=== PATIENT | female | born 1935 | race Caucasian/White ===

== ENCOUNTER 2017-12-19 17:10 | Inpatient (IN) | payer MEDICARE ==
[2017-12-19] MEDS ORDERED: LORazepam TAB(*) 1 MG PO ONE (19:41)
[2017-12-19] MEDS ORDERED: LORazepam INJ* 2 MG/ML 1 ML VIAL IM ONE (19:59)
--- NOTE | 2017-12-19 19:59 | ED ---
Abdominal Pain/Female - HPI Summary HPI Summary: Patient with history of dementia noncooperative with physical exam and history of present illness. Per family patient complains of dementia, bilateral foot pain, abdominal pain, left upper extremity pain. Family also states increase in Baseline hallucinations over the past 24 hours. Pt's regular caregiver is her who is currently admitted to [facility], and for mpast 24 hrs patient is now with son and [id number] who states they are unable to care for her. Medical conditions unknown, as patient has not been to PCP in 16 years. Family denies fever, cough, SOB, V, change in urine, change in BM. - History of Current Complaint Chief Complaint: EDGeneral Stated Complaint: NO BOWEL MOVEMENT(24 HRS)/CONFUSION Time Seen by Provider: 12/19/17 18:05 Hx Obtained From: Family/Pastry Wrapper Hx From Patient Unobtainable Due To: Dementia Onset/Duration: Lasting Hours Pain Intensity: 0 Pain Scale Used: 0-10 Numeric Associated Signs and Symptoms: Positive: Negative Allergies/Adverse Reactions: Allergies Allergy/AdvReac Type Severity Reaction Status Date / Time No Known Allergies Allergy Verified 12/19/17 21:32 PMH/Surg Hx/FS Hx/Imm Hx Endocrine/Hematology History: Denies: Hx Diabetes, Hx Thyroid Disease Cardiovascular History: Denies: Hx Hypertension Respiratory History: Denies: Hx Asthma, Hx Chronic Obstructive Pulmonary Disease (COPD) GI History: Denies: Hx Ulcer History: Denies: Hx Dialysis Musculoskeletal History: Denies: Hx Rheumatoid Arthritis, Hx Osteoporosis - Surgical History Surgery Procedure, Year, and Place: HYSTERECTOMY Infectious Disease History: No Infectious Disease History: Denies: Hx Clostridium Difficile, Hx Hepatitis, Hx Human Immunodeficiency Virus (HIV), Hx of Known/Suspected MRSA, Hx Shingles, Hx Tuberculosis, Traveled Outside the [place] in Last 30 Days - Social History Alcohol Use: None Substance Use Type: Reports: None Smoking Status (MU): Never Smoked Tobacco Review of Systems Constitutional: Negative ENT: Negative Cardiovascular: Negative Respiratory: Negative Positive: Abdominal Pain Genitourinary: Negative Musculoskeletal: Other Skin: Negative Neurological: Negative Psychological: Normal All Other Systems Reviewed And Are Negative: Yes Physical Exam - Summary Physical Exam Summary: Patient reacts to palpation of abdomen diffusely, worse in right lower quadrant. Patient moves bilateral lower extremities mild upper extremities freely. No evidence of trauma. Lung sounds clear to auscultation bilaterally. Triage Information Reviewed: Yes Vital Signs On Initial Exam: Initial Vitals Temp Pulse Resp BP Pulse Ox 98.9 F 80 16 167/96 96 12/19/17 17:22 12/19/17 17:22 12/19/17 17:22 12/19/17 17:22 12/19/17 17:22 Vital Signs Reviewed: Yes Appearance: Positive: Well-Appearing Skin: Positive: Warm Head/Face: Positive: Normal Head/Face Inspection Eyes: Positive: Normal ENT: Positive: Normal ENT inspection Neck: Positive: Supple Respiratory/Lung Sounds: Positive: Clear to Auscultation Cardiovascular: Positive: Normal Abdomen Description: Positive: Other: Musculoskeletal: Positive: Normal Neurological: Positive: Normal Psychiatric: Positive: Normal AVPU Assessment: Alert - Adrien Coma Scale Best Eye Response: 4 - Spontaneous Best Motor Response: 6 - Obeys Commands Best Verbal Response: 5 - Oriented Coma Scale Total: 15 Diagnostics - Vital Signs Vital Signs Temp Pulse Resp BP Pulse Ox 12/19/17 17:22 98.9 F 80 16 167/96 96 - Laboratory Result Diagrams: 12/20/17 05:43 12/20/17 05:44 Lab Statement: Any lab studies that have been ordered have been reviewed, and results considered in the medical decision making process. Abdominal Pain Fem Course/Dx - Course Course Of Treatment: Patient with history of dementia noncooperative with physical exam and history of present illness. Per family patient complains of dementia, bilateral foot pain, abdominal pain, left upper extremity pain. Family also states increase in Baseline hallucinations over the past 24 hours. Regular caregiver's who has been admitted to the hospital, and patient is now with son and [id number] who states they are unable to care for her. Medical conditions unknown, as patient has not been to PCP in 16 years. Family denies fever, cough, SOB, V, change in urine, change in BM. Physical exam:Patient reacts to palpation of abdomen diffusely, worse in right lower quadrant. Patient moves bilateral lower extremities mild upper extremities freely. No evidence of trauma. Lung sounds clear to auscultation bilaterally. Vital signs within normal limits. Patient was highly resistant to blood work being drawn and to all imaging. After Ativan 0.5 mg IV, Geodon 10 mg IV, Haldol 5 mg IV 2 patient remained resistant. Patient was ultimately placed on Precedex drip and imaging was performed during sedation. Labs are unremarkable. Patient is tachycardic, vital signs otherwise within normal limits. Chest x-ray suspicious for left lobe pneumonia. CT chest abdomen pelvis and brain pending. Admitted to hospitalist. - Diagnoses Provider Diagnoses: Altered mental status, Dementia, Abdominal pain, Left upper limb pain Discharge - Sign-Out/Discharge Documenting (check all that apply): Patient Departure - Discharge Plan Condition: Stable Disposition: ADMITTED TO [facility] - Billing Disposition and Condition Condition: STABLE Disposition: Admitted to [facility]
[2017-12-19] MEDS ORDERED: Ziprasidone IM INJ* 20 MG/ML VIAL IM ONE (22:20)
[2017-12-19] MEDS ORDERED: Sterile Water for Inj* 10 ML ONE (22:39)
[2017-12-20] MEDS ORDERED: Haloperidol INJ IV/IM* 5 MG/ML AMP IV SLOW PU ONE ×3 (01:01→15:10)
[2017-12-20 01:06] LABS: ABS Basophils 0 10^3/ul (0-0.2); ABS Eosinophils 0.1 10^3/ul (0-0.6); ABS Lymphocytes 1.1 10^3/ul (1.0-4.8); ABS Monocytes 0.3 10^3/ul (0-0.8); ABS Neutrophils 1.9 10^3/ul (1.5-7.7); ABS Nucleated RBC 0 10^3/ul; Eosinophil % 1.7 % (0-6); Hematocrit 39 % (35-47); Hemoglobin 12.8 g/dl (12.0-16.0); Mean Corpuscular HGB Conc 33 g/dl (31-36); Mean Corpuscular Hemoglobin 30 pg (27-31); Mean Corpuscular Volume 91 fL (80-97); Mean Platelet Volume 9.4 um3 (7.4-10.4); Nucleated Red Blood Cells % 0; Platelet Count 157 10^3/ul (150-450); Red Blood Count 4.22 10^6/ul (4.00-5.40); Red Cell Distribution Width 13 % (10.5-15); White Blood Count 3.4 10^3/ul (3.5-10.8)
[2017-12-20 01:16] LABS: EGFR Non-African American 66.7 (>60)
[2017-12-20] MEDS ORDERED: diPHENhydraMINE IV* 50 MG/ML 1 ml VIAL (BENADRYL) IV ONE (01:41)
[2017-12-20] MEDS ORDERED: Dexmedetomidine* 400 MCG in NS 0.9% 100 ML* 96 ML IVPB SCH (03:00)
[2017-12-20] MEDS ORDERED: NS 0.9% 500 ML* 500 ML IV ONE (03:14)
[2017-12-20] MEDS ORDERED: NS 0.9% 1000 ML* 1,000 ML IV SCH (03:30)
[2017-12-20] MEDS ORDERED: LORazepam INJ* 2 MG/ML 1 ML VIAL IV PUSH PRN (03:50)
[2017-12-20] MEDS ORDERED: hydrALAZINE IV* 20 MG/ML VIAL IV SLOW PU PRN (03:51)
[2017-12-20] MEDS ORDERED: LORazepam INJ* 2 MG/ML 1 ML VIAL IV PUSH STA (04:05)
--- NOTE | 2017-12-20 04:11 | ADMNOTE ---
Subjective Date of Service: 12/20/17 Interval History: code status full this is an admisison h/p pt is eval for 70 min hpi 82 yr old wf with hx of dementia was brought in by family who has been taking care of her after her was in this hospital---> unable to take care of her anymore. pt was found very agitated despite of multiple meds given from er: haldol iv 5 mg twice+ geodan 10 mg im + ativan 0.5 mg twice. er was unable to do any imaging and labs due to her agitation. pt was started with presadex drip for agitation. initial chest x ray showed left pleural effusion. pt c/o pain to er when first showed up but this creative services writer was unable to further eval due to her concurrent mental status. stat head ct was neg of acute cva but ct of chest and abd : large hiatal hernia containing the stomach, duodenal bulb and distal half transverse colon and prox descending colon cardiomegaly spoke with icu dr will call stat surgery. pt was cultured and started with zosyn and vanco when seen by this creative services writer phx dementia pshx n/a with abd scars seen when james was placed social hx unable comes from home lives with son after was admitted in hospital fhx n/a Family History: Findings - unable Social History: Findings - comes from home lives with who is in hospital Past Medical History: Findings - dementia otherwise unable Review of Systems - Measurements Intake and Output: Intake and Output Last 24 Hours 12/17/17 12/18/17 12/19/17 12/20/17 06:59 06:59 06:59 06:59 Weight 90 lb - Review of Systems General Comments: agitation otherwise unable due to dementia hx Objective Active Medications: Hydralazine HCl (Apresoline Iv*) 5 mg IV SLOW PU Q6H PRN PRN Reason: BLOOD PRESSURE Dexmedetomidine HCl 400 mcg/ (Sodium Chloride) 100 mls @ 6.12 mls/hr IVPB .( Initial Rate) MARTHA; Protocol Last Admin: 12/20/17 03:28 Dose: 6.12 mls/hr Sodium Chloride (Ns 0.9% 500 Ml*) 500 mls @ 70 mls/hr IV ONCE ONE Stop: 12/20/17 10:22 Last Admin: 12/20/17 03:29 Dose: 70 mls/hr Sodium Chloride (Ns 0.9% 1000 Ml*) 1,000 mls @ 100 mls/hr IV PER RATE MARTHA Stop: 12/20/17 13:29 Vital Signs - 8 hr 12/19/17 12/19/17 12/20/17 20:57 21:37 01:00 Temperature Pulse Rate 98 100 Respiratory 24 22 Rate Blood Pressure 201/113 (mmHg) O2 Sat by Pulse 96 94 Oximetry 12/20/17 12/20/17 12/20/17 01:29 02:00 03:00 Temperature 97.8 F Pulse Rate 97 116 128 Respiratory 20 27 Rate Blood Pressure (mmHg) O2 Sat by Pulse 98 97 97 Oximetry 12/20/17 03:42 Temperature Pulse Rate 111 Respiratory 21 Rate Blood Pressure 189/114 (mmHg) O2 Sat by Pulse 97 Oximetry Appearance: very agitated initially but finally settled with presadex drip Eyes: - - pt closes her eyelids tightly initially for exam Ears/Nose/Mouth/Throat: - - oral mucosa dry unable to eval due to her ms Neck: NL Appearance and Movements; NL JVP, Trachea Midline, No Thyroid Enlargement, Masses Respiratory: Symmetrical Chest Expansion and Respiratory Effort, Clear to Auscultation Cardiovascular: NL Sounds; No Murmurs; No JVD, RRR, No Edema Abdominal: - - + bs but + distended unable to pinpoint any focal tender point due to her ms Extremities: No Edema, - - unable to test further Skin: No Rash or Ulcers Neurological: - - very agitated does not follow commands able to move her exts against gravity plantar reflex downwards unable to further test due to her baseline dementia Result Diagrams: 12/20/17 05:43 12/20/17 05:44 EKG Data: ekg sinus tach no acute st t changes seen Assess/Plan/Problems-Billing Assessment: this is a 82 yr old wf with dementia was dropped by her family because they could not take care of her ---> was admitted in the hospital and she went to live with her son---> pt was given multiple antipsy meds from er with no relief finally settled down on presadex drip. no labs or imaging tests were able to be done until she got sedated. intial head ct is neg but ct chest showed large hiatal hernia containing stomach/duodenal bulb distal half of transverse colon and prox descending colon ---> spoke with surgery data processing consultant who will see pt in am - Patient Problems (1) Altered mental status Current Visit: Yes Status: Acute Code(s): R41.82 - ALTERED MENTAL STATUS, UNSPECIFIED SNOMED Code(s): 234954338 Comment: not sure of her baseline mental status she is on presadex drip due to her severe agitation will continue abx for now spoke with icu dr ---> surgery called due to abnormal ct of chest/abd (2) Abdominal pain Current Visit: Yes Status: Acute Code(s): R10.9 - UNSPECIFIED ABDOMINAL PAIN SNOMED Code(s): 60933764 Comment: large hiatal hernia npo for now surgery consult called in - cover with elisha (3) Electrolyte abnormality Current Visit: Yes Status: Acute Code(s): E87.8 - OTH DISORDERS OF ELECTROLYTE AND FLUID BALANCE, NEC SNOMED Code(s): 269190292 Comment: on ivf continue current mgt (4) Mild dehydration Current Visit: Yes Status: Acute Code(s): E86.0 - DEHYDRATION SNOMED Code( s): 4835516433682 Comment: ivf moniter daily lytes and input and output james in place (5) Full code status Current Visit: Yes Status: Acute Code(s): Z78.9 - OTHER SPECIFIED HEALTH STATUS SNOMED Code(s): 804250553 Comment: pt has very guarded prognosis will need to d/w family reg her code status is sick and admitted in the hospital otherwise son/daughter in law are unable to take care of her (6) DVT prophylaxis Current Visit: Yes Status: Acute Code(s): IRO1065 - SNOMED Code(s): 295028692 Comment: scd
[2017-12-20] MEDS ORDERED: ZOSYN 3.375 GM x ONE DOSE over 30 miuntes IVPB ×2 (05:00)
[2017-12-20 05:04] LABS: Urine Appearance Clear; Urine Blood 1+ (Negative); Urine Color Yellow; Urine Ketones Trace (Negative); Urine Protein Negative (Negative); Urine Red Blood Cell 2+(6-10/hpf) (Absent); Urine Specific Gravity 1.009 (1.010-1.030); Urine Urobilinogen Negative (Negative); Urine White Blood Cell Trace(0-5/hpf) (Absent)
[2017-12-20] MEDS ORDERED: Vancomycin(*) 750 MG in NS 0.9% 250 ML* 250 ML IVPB ONE (06:00)
[2017-12-20 06:03] LABS: ABS Basophils 0 10^3/ul (0-0.2); ABS Eosinophils 0 10^3/ul (0-0.6); ABS Lymphocytes 0.9 10^3/ul (1.0-4.8); ABS Monocytes 0.4 10^3/ul (0-0.8); ABS Neutrophils 1.9 10^3/ul (1.5-7.7); ABS Nucleated RBC 0 10^3/ul; Eosinophil % 1.3 % (0-6); Hematocrit 38 % (35-47); Hemoglobin 12.5 g/dl (12.0-16.0); Lymphocyte % 27.6 % (25-47); Mean Corpuscular HGB Conc 33 g/dl (31-36); Mean Corpuscular Hemoglobin 30 pg (27-31); Mean Corpuscular Volume 91 fL (80-97); Mean Platelet Volume 9.3 um3 (7.4-10.4); Nucleated Red Blood Cells % 0.1; Platelet Count 140 10^3/ul (150-450); Red Blood Count 4.15 10^6/ul (4.00-5.40); Red Cell Distribution Width 13 % (10.5-15); White Blood Count 3.2 10^3/ul (3.5-10.8)
--- NOTE | 2017-12-20 06:12 | RAD ---
EXAM: CT Head Without Intravenous Contrast EXAM DATE/TIME: 12/20/2017 4:58 AM CLINICAL HISTORY: 82 years old, female; Hallucinations TECHNIQUE: Axial computed tomography images of the head/brain without intravenous contrast. All CT scans at this facility use at least one of these dose optimization techniques: automated exposure control; mA and/or kV adjustment per patient size (includes targeted exams where dose is matched to clinical indication); or iterative reconstruction. COMPARISON: No relevant prior studies available. FINDINGS: Brain: There is no evidence for an acute large vessel territorial infarct, intracranial hemorrhage, mass, mass effect, or herniation. There are extensive non-specific foci of low attenuation in the periventricular and subcortical white matter, which are likely the sequela of chronic small vessel ischemic injury. Incidental note is made of calcifications in the left globus pallidus. Brainstem: Unremarkable. Midline shift: There is no midline shift. Ventricles: The ventricles are mildly dilated in proportion to the sulci, which is compatible with mild generalized cerebral volume loss. Bones/joints: Normal. No acute fracture. Sinuses: Normal as visualized. No acute sinusitis. Mastoid air cells: There is sclerosis and opacification of the mastoid air cells bilaterally. Auditory system: There is opacification of the middle ear spaces bilaterally. Soft tissues: Unremarkable. Vasculature: There are atherosclerotic calcifications of the internal carotid arteries. IMPRESSION: 1. No CT evidence for an acute intracranial process. 2. Extensive periventricular and subcortical white matter changes, which are likely the sequela of chronic small vessel ischemic injury. 3. Opacification of the bilateral middle ear spaces and mastoid air cells, which can be seen with bilateral otomastoiditis. To contact [facility] with a general question: [facility] - [phone] For direct physician to physician contact: Physician Hotline - [phone] [facility] ([facility] Facility ID #[id number])
[2017-12-20 06:22] LABS: EGFR Non-African American 67.7 (>60)
--- NOTE | 2017-12-20 06:46 | RAD ---
EXAM: CT Chest Without Intravenous Contrast EXAM DATE/TIME: 12/20/2017 5:05 AM CLINICAL HISTORY: 82 years old, female; Pain; Abdominal tenderness, abnormal cxr TECHNIQUE: Axial computed tomography images of the chest without intravenous contrast. All CT scans at this facility use at least one of these dose optimization techniques: automated exposure control; mA and/or kV adjustment per patient size (includes targeted exams where dose is matched to clinical indication); or iterative reconstruction. Coronal and sagittal reformatted images were created and reviewed. COMPARISON: No relevant prior studies available. FINDINGS: Lungs: There is atelectasis in the lingula, left lower lobe, and right lower lobe. No lung consolidation or mass is noted. There is a 17 mm tracheal diverticulum arising from the right posterolateral aspect of the trachea at the level of the thoracic inlet. Pleural space: No pneumothorax or pleural effusion is noted. Heart: The heart is enlarged. There are aortic valve calcifications, mitral annular calcifications, coronary artery calcifications. Aorta: No thoracic aortic aneurysm is noted. There are moderate to severe atherosclerotic calcifications. Lymph nodes: No lymphadenopathy. Bones/joints: The imaged bony structures are intact. There is no suspicious osteolytic or osteoblastic lesion. The bones have a demineralized appearance. There are severe degenerative changes of both glenohumeral joints. There are also degenerative changes in the thoracic spine. Soft tissues: Unremarkable. Stomach and bowel: There is a large hiatal hernia containing the stomach, duodenal bulb, and distal half of the transverse colon and proximal descending colon. IMPRESSION: 1. Large hiatal hernia containing the stomach, duodenal bulb, and distal half of the transverse colon and proximal descending colon. 2. Cardiomegaly. EXAM: CT Abdomen and Pelvis Without Intravenous Contrast EXAM DATE/TIME: 12/20/2017 5:05 AM CLINICAL HISTORY: 82 years old, female; Pain; Abdominal tenderness, abnormal cxr TECHNIQUE: Axial computed tomography images of the abdomen and pelvis without intravenous contrast. All CT scans at this facility use at least one of these dose optimization techniques: automated exposure control; mA and/or kV adjustment per patient size (includes targeted exams where dose is matched to clinical indication); or iterative reconstruction. Coronal and sagittal reformatted images were created and reviewed. COMPARISON: No relevant prior studies available. FINDINGS: ABDOMEN: Liver: The liver is unremarkable. No liver lesion is seen. The contour of the liver is smooth. No hepatomegaly is noted. Gallbladder and bile ducts: There are calcified gallstones in the body of the gallbladder. No gallbladder wall thickening, pericholecystic fluid, or inflammatory fat stranding is noted around the gallbladder. No dilation of the bile ducts is identified. Pancreas: Unremarkable. No ductal dilation. Spleen: There is a tiny calcified granuloma in the spleen. No splenomegaly is noted. Adrenals: Normal. No mass. Kidneys and ureters: There is an 11 mm round exophytic lesion arising from the lateral aspect of the midpole of the left kidney, which measures 38 Hounsfield units (image 56 of the coronal series 601). There is an additional 15 mm round exophytic lesion arising from the posterolateral aspect of the lower third of the left kidney, which measures 25 Hounsfield units (image 62 of the coronal series 601). There is a 23 mm simple cyst arising from the midpole of the left kidney. There are 11 mm and 21 mm simple cysts arising from the midpole of the right kidney. No stones are noted in the kidneys or ureters. There is no hydronephrosis or hydroureter. Stomach and bowel: There is a large hiatal hernia containing the stomach, duodenal bulb, and distal half of the transverse colon and proximal descending colon. The stomach is rotated along its long axis such that the greater curvature lies above the lesser curvature, which is compatible with an organoaxial gastric volvulus. No dilation of the stomach is noted to suggest a gastric outlet obstruction. There is a dilated loop of small bowel with an air-fluid level in the central aspect of the abdomen. There is colonic diverticulosis without evidence for diverticulitis. There is no evidence for a colitis, pneumatosis intestinalis, intussusception, or perforated viscus. Appendix: The appendix is not identified and may have been removed. No dilated blind ending tubular structure, inflammatory fat stranding, or fluid is noted in the expected location of the appendix. PELVIS: Bladder: There is a Anguiano catheter in the urinary bladder, which contains air. No stones are seen in the urinary bladder. There is no bladder wall thickening. Reproductive: There has been a hysterectomy. The uterus and ovaries are not identified. ABDOMEN and PELVIS: Intraperitoneal space: Normal. No free air. No fluid collection. Bones/joints: The imaged bony structures are intact. There is no suspicious osteolytic or osteoblastic lesion. The bones have a demineralized appearance. There are degenerative changes involving the lumbar spine, hip joints, pubic symphysis, and sacroiliac joints. Soft tissues: There is a midline vertical incision scar in the anterior abdominal wall. Vasculature: The abdominal aorta is normal in caliber. There are extensive atherosclerotic calcifications. Lymph nodes: Normal. No enlarged lymph nodes. IMPRESSION: 1. Dilated loop of small bowel in the central aspect of the abdomen with an air-fluid level, which may indicate a small bowel ileus or low-grade small bowel obstruction. 2. Cholelithiasis. 3. Large hiatal hernia containing the stomach, duodenal bulb, and distal half of the transverse colon and proximal descending colon. 4. Organoaxial gastric volvulus. 5. Colonic diverticulosis without evidence for diverticulitis. 6. 11 mm round exophytic lesion arising from the lateral aspect of the midpole of the left kidney and a 15 mm round exophytic lesion arising from the posterolateral aspect of the lower third of the left kidney, which are indeterminate. Further evaluation with a multiphase abdominal CT or MRI is suggested. To contact [facility] with a general question: [facility] - [phone] For direct physician to physician contact: Physician Hotline - [phone] [facility] ([facility] Facility ID #[id number])
--- NOTE | 2017-12-20 08:01 | RAD ---
INDICATION: Left shoulder pain. TECHNIQUE: A single AP portable film of the left shoulder was obtained. The patient was uncooperative for the study. FINDINGS: The bones appear osteopenic and in normal alignment. No fracture is seen. There appears be moderate osteoarthritic change in the glenohumeral joint. IMPRESSION: LIMITED STUDY, NO FRACTURE IS SEEN. R1NF
--- NOTE | 2017-12-20 08:03 | RAD ---
INDICATION: Agitation. COMPARISON: There are no relevant prior studies available for comparison. TECHNIQUE: A portable view of the chest was obtained. FINDINGS: The heart appears mildly enlarged. There is an infiltrate present in the left mid and lower lung field. The right lung appears clear. No pleural effusion is seen. IMPRESSION: LEFT LUNG INFILTRATE. R0
[2017-12-20] MEDS ORDERED: Vancomycin per Pharmacy* NOTE FOLLOW UP PRN (08:09)
[2017-12-20] MEDS: Piperacillin/Tazobac ADVAN(*) 3.375 GM in NS 0.9% 100 ML* 100 ML IVPB SCH ×2 (09:10→20:05)
[2017-12-20] MEDS: Vancomycin(*) 750 MG in NS 0.9% 250 ML* 250 ML IVPB SCH ×2 (11:44→17:48)
--- NOTE | 2017-12-20 13:59 | PN ---
Progress Note - Progress Note Date of Service: 12/20/17 - Critical care note Note: Pt seen and examined at bedside. History obtained from review of medical records and discussion with admitting physician Dr Feldman and pts daughter, grand daughter and [id number]. Pt has advanced dementia, medical history not known as she has not seen provider for many years. Pt`s was hospitalized who was disabilities caregiver for patient. She is dependant on her activities of daily living. She was brought in as she was not being able to be cared off at home. She was very agitated in ED. She was given Haldol, Geodon and Ativan with continued agitation. She was subsequently started on Precedex drip and remained sedated and comfortable when I saw her this morning. CXR showed opacity at left base. CT chest, abdomen, pelvis showed large hiatal hernia with stomach, part of duodenum, distal half of transverse colon. Dilated loop of small bowel with air fluid level concerning for SBO versus ileus. Exophytic lesions seen on kidneys Pt was started on broad spectrum abx. Receiving IV fluids. Her O2 sats are stable on 2L O2. Pt comfortable in bed. Doesnot respond to stimuli. Has episodes of apneas with no desaturation consistent with possible sleep apnea. CT brain didnot reveal any acute abnormalities. Active Medications Generic Name Dose Route Start Last Admin Trade Name Freq PRN Reason Stop Dose Admin Hydralazine HCl 5 mg 12/20/17 03:51 Apresoline Iv* IV SLOW PU Q6H PRN BLOOD PRESSURE Dexmedetomidine HCl 400 mcg/ 100 mls @ 6.12 mls/hr 12/20/17 03:00 12/20/17 03 :28 Sodium Chloride IVPB 6.12 mls/hr .(Initial Rate) MARTHA Administration Protocol 0.6 MCG/KG/HR Vancomycin HCl 750 mg/ Sodium 250 mls @ 166.667 mls/hr 12/20/17 05:00 11:44 Chloride IVPB Not Given Q12H MARTHA Piperacillin Sod/Tazobactam 100 mls @ 25 mls/hr 12/20/17 10:00 12/20/17 09:10 Sod 3.375 gm/ Sodium Chloride IVPB 25 mls/hr Q8H MARTHA Administration Pharmacy Consult 1 note 12/20/17 08:09 Vancomycin Per Pharmacy* FOLLOW UP . PRN PER PROTOCOL Pharmacy Profile Note 1 note 12/22/17 04:30 Vancomycin Trough Check FOLLOW UP 12/22/17 04:31 ONCE ONE Vital Signs Temp Pulse Resp BP Pulse Ox 96.7 F 71 19 150/81 97 12/20/17 11:27 12/20/17 13:01 12/20/17 13:01 12/20/17 13:01 12/20/17 13:01 O/E: Pt in NAD, non-communicative HEENT: PERRLA, edentulous, no JVD Lungs: Diminished air entry at lt base CVS: S1, S2+, regular Abd: distended, diminished bowel sounds Ext: Withdraws to pain Laboratory Results - last 24 hr 12/20/17 12/20/17 12/20/17 00:50 00:50 00:50 WBC 3.4 L RBC 4.22 Hgb 12.8 Hct 39 MCV 91 MCH 30 MCHC 33 RDW 13 Plt Count 157 MPV 9.4 Neut % (Auto) 55.9 Lymph % (Auto) 32.0 Callahan % (Auto) 9.2 H Eos % (Auto) 1.7 Baso % (Auto) 1.2 Absolute Neuts (auto) 1.9 Absolute Lymphs (auto) 1.1 Absolute Monos (auto) 0.3 Absolute Eos (auto) 0.1 Absolute Basos (auto) 0 Absolute Nucleated RBC 0 Nucleated RBC % 0 Sodium 138 Potassium 3.3 L Chloride 103 Carbon Dioxide 27 Anion Gap 8 BUN 12 Creatinine 0.82 Est GFR ( Amer) 80.8 Est GFR (Non-Af Amer) 66.7 BUN/Creatinine Ratio 14.6 Glucose 86 Lactic Acid 0.6 Calcium 8.8 Total Bilirubin 0.60 AST 17 ALT 6 L Alkaline Phosphatase 89 Troponin I 0.00 C-Reactive Protein 16.21 H B-Natriuretic Peptide Total Protein 6.9 Albumin 3.6 Globulin 3.3 Albumin/Globulin Ratio 1.1 Lipase 37 Urine Color Urine Appearance Urine pH Ur Specific [place] Urine Protein Urine Ketones Urine Blood Urine Nitrate Urine Bilirubin Urine Urobilinogen Ur Leukocyte Esterase Urine WBC (Auto) Urine RBC (Auto) Urine Bacteria Urine Glucose 12/20/17 12/20/17 12/20/17 00:50 04:46 05:43 WBC 3.2 L RBC 4.15 Hgb 12.5 Hct 38 MCV 91 MCH 30 MCHC 33 RDW 13 Plt Count 140 L MPV 9.3 Neut % (Auto) 58.3 Lymph % (Auto) 27.6 Callahan % (Auto) 11.8 H Eos % (Auto) 1.3 Baso % (Auto) 1.0 Absolute Neuts (auto) 1.9 Absolute Lymphs (auto) 0.9 L Absolute Monos (auto) 0.4 Absolute Eos (auto) 0 Absolute Basos (auto) 0 Absolute Nucleated RBC 0 Nucleated RBC % 0.1 Sodium Potassium Chloride Carbon Dioxide Anion Gap BUN Creatinine Est GFR ( Amer) Est GFR (Non-Af Amer) BUN/Creatinine Ratio Glucose Lactic Acid Calcium Total Bilirubin AST ALT Alkaline Phosphatase Troponin I C-Reactive Protein B-Natriuretic Peptide 88 Total Protein Albumin Globulin Albumin/Globulin Ratio Lipase Urine Color Yellow Urine Appearance Clear Urine pH 7.0 Ur Specific [place] 1.009 L Urine Protein Negative Urine Ketones Trace A Urine Blood 1+ A Urine Nitrate Negative Urine Bilirubin Negative Urine Urobilinogen Negative Ur Leukocyte Esterase Negative Urine WBC (Auto) Trace(0-5/hpf) Urine RBC (Auto) 2+(6-10/hpf) A Urine Bacteria Absent Urine Glucose Negative 12/20/17 12/20/17 05:44 13:00 WBC RBC Hgb Hct MCV MCH MCHC RDW Plt Count MPV Neut % (Auto) Lymph % (Auto) Callahan % (Auto) Eos % (Auto) Baso % (Auto) Absolute Neuts (auto) Absolute Lymphs (auto) Absolute Monos (auto) Absolute Eos (auto) Absolute Basos (auto) Absolute Nucleated RBC Nucleated RBC % Sodium 143 Potassium 3.6 Chloride 109 Carbon Dioxide 26 Anion Gap 8 BUN 10 Creatinine 0.81 Est GFR ( Amer) 81.9 Est GFR (Non-Af Amer) 67.7 BUN/Creatinine Ratio 12.3 Glucose 99 Lactic Acid Calcium 8.7 Total Bilirubin 0.50 AST 18 ALT 6 L Alkaline Phosphatase 91 Troponin I 0.03 0.03 C-Reactive Protein B-Natriuretic Peptide Total Protein 6.7 Albumin 3.5 Globulin 3.2 Albumin/Globulin Ratio 1.1 Lipase Urine Color Urine Appearance Urine pH Ur Specific [place] Urine Protein Urine Ketones Urine Blood Urine Nitrate Urine Bilirubin Urine Urobilinogen Ur Leukocyte Esterase Urine WBC (Auto) Urine RBC (Auto) Urine Bacteria Urine Glucose I/R: 82 y o f with advanced dementia with poor functional status at baseline, dependant on ADL, lives at home with her who is currently hospitalized brought in by family as she was unable to care for herself, pt found to have large hiatal hernia with stomach and bowel contents and SBO/ileus Pt was agitated in ED, received Haldol, Geodon, Ativan and subsequently placed on Precedex drip. Pt was started on broad spectrum abx, IVF Precedex drip was titrated and is currently off Pt not agitated, not communicative, responds to painful stimuli by withdrawing extremities Hemodynamically stable BP improved D/w surgery Dr Lacy, who reviewed CT chest Given extent of hiatal hernia and underlying fragile status, she would be poor candidate for surgery I have discussed her case with pts daughter, grand daughter at bedside. They feel aggressive measures are not indicated as she has no quality of life at baseline due to advanced dementia. Her baseline medical status is unknown as she has not seen a physician for many years I have also discussed with her who is currently hospitalized at [facility](rm [id number]) and pts [id number] who is involved in her care. [id number], son will be coming in today for family meeting They have not made any decision regarding advanced directives for her
[2017-12-20] MEDS ORDERED: Haloperidol INJ IV/IM* 5 MG/ML AMP ONE (14:46)
[2017-12-20] MEDS ORDERED: NS 0.9% 250 ML* 250 ML ONE (14:48)
[2017-12-20] MEDS ORDERED: Morphine VIAL* 10 MG/ML 1 ML VIAL ONE (14:55)
[2017-12-20] MEDS ORDERED: Morphine VIAL* 10 MG/ML 1 ML VIAL IV ONE (15:10)
--- NOTE | 2017-12-20 15:54 | PN ---
Progress Note - Progress Note Date of Service: 12/20/17 - ICU progress note Note: Pt `s family arrived at bedside Discussed with pts son Korey, [id number] Kristina, daughter and grand daughter regarding prognosis Family would like her to be comfortable with no agressive measures They would want NH placement for her No surgical intervention as she would not be able to tolerate Pt will be receiving Morphine and Haldol prn Hypotension resolved. She is hemodynamically stable Pt more alert when family at bedside, was attempting to pull IV and get out of bed. Recived Haldol and Morhone with good result Pt to be transferred to regular medical floor under hospitalist service D/w Dr King
[2017-12-20] MEDS: Morphine VIAL* 4 MG/ML VIAL (1 ml vial) IV PRN (19:52)
--- NOTE | 2017-12-20 21:31 | CONS ---
CONSULTATION REPORT: DATE OF CONSULTATION: 12/20/17 HISTORY OF PRESENT ILLNESS: The patient is an 82-year-old female admitted to the intensive care unit on the hospitalist service. I was asked to consult for a large hiatal hernia. She is a frail, halfway patient, who is mostly demented, unable to answer questions or give a history, but she was seeming quite agitated, and was therefore brought to the hospital. I am unable to get any history. According to the Hospitalists, who discussed it with the family and the halfway, it is unknown what abdominal surgery she has had before. PHYSICAL EXAMINATION: On examination today, she is a frail-appearing, almost cachetic elderly female, who does not respond to verbal stimulus, barely responsive to painful stimulus, mostly with moaning. Abdomen is soft, but she does seem to wince with palpation of the upper abdomen. DIAGNOSTIC STUDIES/LAB DATA: I have reviewed her lab work and her scans and it is clear that she has a large paraesophageal hiatal hernia with the entirety of the stomach up there and good portion of the transverse colon. I do not see any free fluid or edema, nothing that clearly points to ischemia or impaired bowel. There is contrast and air into the transverse colon. IMPRESSION: Elderly, frail, halfway bound woman with large paraesophageal hernia that may or may not be causing her pain. I discussed this with Dr. Hernandez and I feel that the patient is not really an operative candidate in my estimation. She would not be able to come off the ventilator after having hiatal hernia surgery, and given her extremely limited quality of life, I question whether surgery is really in her best interest. Dr. Hernandez has been in contact with the family and the family will be coming in for conference and I will be happy to discuss this with them as well, but I think comfort measures are more appropriate in this situation. [id number]/[facility] #: [id number] KARISSA
[2017-12-21] MEDS: Piperacillin/Tazobac ADVAN(*) 3.375 GM in NS 0.9% 100 ML* 100 ML IVPB SCH ×2 (02:28→09:15)
[2017-12-21] MEDS: Morphine VIAL* 4 MG/ML VIAL (1 ml vial) IV PRN (05:26)
[2017-12-21] MEDS: Vancomycin(*) 750 MG in NS 0.9% 250 ML* 250 ML IVPB SCH (05:56)
[2017-12-21] MEDS ORDERED: LORazepam INJ* 2 MG/ML 1 ML VIAL IV PUSH PRN (10:20)
[2017-12-21] MEDS: Haloperidol INJ IV/IM* 5 MG/ML AMP IM PRN ×2 (10:45→18:20)
--- NOTE | 2017-12-21 12:58 | PN ---
Subjective Date of Service: 12/21/17 Interval History: HOSPITALIST PROGRESS NOTE Patient sen and examined at bedside. Care reviewed and d/w Sarah Nguyen RN. She received Morphine earlier today and is now sleeping comfortably. Did not wake with voice or touch. Family History: Unchanged from Admission Social History: Unchanged from Admission Past Medical History: Unchanged from Admission Objective Active Medications: Haloperidol Lactate (Haldol Inj Iv/Im*) 2.5 mg IM Q6H PRN PRN Reason: AGITATION Last Admin: 12/21/17 10:45 Dose: 2.5 mg Lorazepam (Ativan Tab(*)) 0.5 mg PO Q4H PRN PRN Reason: ANXIETY Morphine Sulfate (Morphine Oral.Soln 10 Mg*) 10 mg PO Q4H PRN PRN Reason: PAIN Pharmacy Profile Note (Vancomycin Trough Check) 1 note FOLLOW UP ONCE ONE Stop: 12/22/17 04:31 Risperidone (Risperdal) 0.25 mg PO BEDTIME MARTHA Vital Signs - 8 hr 12/21/17 12/21/17 12/21/17 05:26 08:00 09:40 Temperature Pulse Rate Respiratory 16 14 12 Rate Blood Pressure (mmHg) O2 Sat by Pulse Oximetry 12/21/17 11:18 Temperature 98.8 F Pulse Rate 109 Respiratory 20 Rate Blood Pressure 148/89 (mmHg) O2 Sat by Pulse 93 Oximetry Oxygen Devices in Use Now: None Appearance: Elderly frail lady lying in bed in NAD Eyes: No Scleral Icterus Ears/Nose/Mouth/Throat: Mucous Membranes Moist Neck: Trachea Midline Respiratory: Symmetrical Chest Expansion and Respiratory Effort, Clear to Auscultation Cardiovascular: RRR - Normal S1 and S2 Neurological: - - Sedated Result Diagrams: 12/20/17 05:43 12/20/17 05:44 Assess/Plan/Problems-Billing Assessment: Mrs Dumont is an 82 yo F with PMH of dementia who presented to ED with worsening confusion after her was admitted, found to have a large hiatal hernia. - Patient Problems (1) Altered mental status Comment: - Secondary to dementia. - No other acute issues to justify worsening of her mental status, only the fact her was admitted to the hospital. - Continue Haldol, Ativan, and add low dose Risperdal at bedtime. (2) Abdominal pain Comment: - CT showed large hiatal hernia, but unclear how symptomatic it is. - Surgery input appreciated. - Resume diet as tolerated and continue Morphine PRN pain. (3) DVT prophylaxis Comment: - SQ heparin (4) DNR (do not resuscitate) Comment: - Family not interested in aggressive measures. Status and Disposition: Plan for SNF placement.
[2017-12-21] MEDS: Heparin VIAL(*) 5000 UNITS/ML VIAL (FIVE THOUSAND) SUBCUT SCH ×2 (16:17→21:03)
[2017-12-21] MEDS: LORazepam TAB(*) 0.5 MG PO PRN ×2 (18:11→23:51)
[2017-12-22] MEDS: Morphine ORAL.SOLN 10 mg* 2 MG/ML UDC 5 ml PO PRN ×2 (00:03→15:37)
[2017-12-22] MEDS: Haloperidol INJ IV/IM* 5 MG/ML AMP IM PRN ×2 (00:46→21:05)
[2017-12-22] MEDS: LORazepam TAB(*) 0.5 MG PO PRN ×3 (02:12→21:13)
[2017-12-22] MEDS ORDERED: Haloperidol INJ IV/IM* 5 MG/ML AMP IM ONE ×2 (02:30→22:33)
[2017-12-22] MEDS ORDERED: Vancomycin Trough Check NOTE FOLLOW UP ONE (04:30)
[2017-12-22] MEDS: Heparin VIAL(*) 5000 UNITS/ML VIAL (FIVE THOUSAND) SUBCUT SCH (05:55)
--- NOTE | 2017-12-22 10:30 | PN ---
Subjective Date of Service: 12/22/17 Interval History: HOSPITALIST PROGRESS NOTE Patient seen and examined at bedside. Care reviewed and d/w Melissa Quintana RN. She required Haldol for agitation last night and is still a little sedated this AM, but pleasant, smiling with reviewer sales. Minimal PO intake this AM. Family History: Unchanged from Admission Social History: Unchanged from Admission Past Medical History: Unchanged from Admission Objective Active Medications: Haloperidol Lactate (Haldol Inj Iv/Im*) 2.5 mg IM Q6H PRN PRN Reason: AGITATION Last Admin: 12/22/17 00:46 Dose: 2.5 mg Heparin Sodium (Porcine) (Heparin Vial(*)) 5,000 units SUBCUT Q8HR MARTHA Last Admin: 12/22/17 05:55 Dose: Not Given Lorazepam (Ativan Tab(*)) 0.5 mg PO Q4H PRN PRN Reason: ANXIETY Last Admin: 12/22/17 02:12 Dose: 0.5 mg Morphine Sulfate (Morphine Oral.Soln 10 Mg*) 10 mg PO Q4H PRN PRN Reason: PAIN Last Admin: 12/22/17 00:03 Dose: 10 mg Risperidone (Risperdal) 0.25 mg PO BEDTIME MARTHA Last Admin: 12/21/17 20:23 Dose: 0.25 mg Vital Signs - 8 hr 12/22/17 05:54 Respiratory 18 Rate Oxygen Devices in Use Now: None Appearance: Elderly lady sitting up in bed in NAD. Eyes: No Scleral Icterus Ears/Nose/Mouth/Throat: Mucous Membranes Moist Neck: Trachea Midline Respiratory: Symmetrical Chest Expansion and Respiratory Effort, Clear to Auscultation Cardiovascular: RRR - Normal S1 and S2 Result Diagrams: 12/20/17 05:43 12/20/17 05:44 Assess/Plan/Problems-Billing Assessment: Mrs Dumont is an 82 yo F with PMH of dementia who presented to ED with worsening confusion after her was admitted, found to have a large hiatal hernia. - Patient Problems (1) Altered mental status Comment: - Secondary to dementia. - No other acute issues to justify worsening of her mental status, only the fact her was admitted to the hospital. - Continue Haldol, Ativan, and low dose Risperdal at bedtime. - Her PO intake will be a decisive factor on her prognosis - her BMI is normal, but her prealbumin is 8. She does not qualify for Hospice at this time, but if poor PO intake persists, she may in the near future. (2) Abdominal pain Comment: - CT showed large hiatal hernia, but unclear how symptomatic it is. - Surgery input appreciated. - Continue diet as tolerated. (3) DVT prophylaxis Comment: - SQ heparin (4) DNR (do not resuscitate) Comment: - Family not interested in aggressive measures. Status and Disposition: Plan for SNF placement.
[2017-12-22] MEDS ORDERED: Haloperidol INJ IV/IM* 5 MG/ML AMP ONE (22:40)
[2017-12-23] MEDS: Haloperidol INJ IV/IM* 5 MG/ML AMP IM PRN (03:43)
[2017-12-23] MEDS: Morphine ORAL.SOLN 10 mg* 2 MG/ML UDC 5 ml PO PRN (04:51)
[2017-12-23 07:58] LABS: Hematocrit 39 % (35-47)
--- NOTE | 2017-12-23 11:52 | PN ---
Subjective Date of Service: 12/23/17 Interval History: HOSPITALIST PROGRESS NOTE Patient seen and examined at bedside. Care reviewed and d/w Teresa Tolbert RN. She had epistaxis yesterday and was expelling blood clots. Received Haldol last night and is sedated this AM. As per RN she ate a little. Family History: Unchanged from Admission Social History: Unchanged from Admission Past Medical History: Unchanged from Admission Objective Active Medications: Haloperidol Lactate (Haldol Inj Iv/Im*) 2.5 mg IM Q6H PRN PRN Reason: AGITATION Last Admin: 12/23/17 03:43 Dose: 2.5 mg Lorazepam (Ativan Tab(*)) 0.5 mg PO Q4H PRN PRN Reason: ANXIETY Last Admin: 12/22/17 21:13 Dose: 0.5 mg Morphine Sulfate (Morphine Oral.Soln 10 Mg*) 10 mg PO Q4H PRN PRN Reason: PAIN Last Admin: 12/23/17 04:51 Dose: 10 mg Risperidone (Risperdal) 0.25 mg PO BEDTIME MARTHA Last Admin: 12/22/17 21:19 Dose: Not Given Vital Signs - 8 hr 12/23/17 12/23/17 12/23/17 04:51 07:30 07:38 Temperature Pulse Rate Respiratory 18 20 20 Rate Blood Pressure (mmHg) O2 Sat by Pulse Oximetry 12/23/17 07:42 Temperature 97.9 F Pulse Rate 99 Respiratory 20 Rate Blood Pressure 100/74 (mmHg) O2 Sat by Pulse 97 Oximetry Oxygen Devices in Use Now: None Appearance: Elderly lady sitting up in bed, arousable to voice. Eyes: No Scleral Icterus Ears/Nose/Mouth/Throat: Mucous Membranes Moist, - - No signs of active epistaxis , dry blood around left nostril Neck: Trachea Midline Respiratory: Symmetrical Chest Expansion and Respiratory Effort, Clear to Auscultation Cardiovascular: RRR - Normal S1 and S2 Neurological: - - Sedated, opens eyes when called and smile, but did not answer my questions Result Diagrams: 12/23/17 07:48 12/20/17 05:44 Assess/Plan/Problems-Billing Assessment: Mrs Dumont is an 82 yo F with PMH of dementia who presented to ED with worsening confusion after her was admitted, found to have a large hiatal hernia. - Patient Problems (1) Altered mental status Comment: - Secondary to dementia. - No other acute issues to justify worsening of her mental status, only the fact her was admitted to the hospital. - Continue Haldol, Ativan, and low dose Risperdal at bedtime. - Her PO intake will be a decisive factor on her prognosis - her BMI is normal, but her prealbumin is 8. She does not qualify for Hospice at this time, but if poor PO intake persists, she may in the near future. (2) Abdominal pain Comment: - CT showed large hiatal hernia, but unclear how symptomatic it is. - Surgery input appreciated. - Continue diet as tolerated. (3) DVT prophylaxis Comment: - Hold off SQ heparin in the setting of epistaxis. (4) DNR (do not resuscitate) Comment: - Family not interested in aggressive measures. Status and Disposition: Plan for SNF placement.
[2017-12-23] MEDS ORDERED: Pneumococcal *Vac Polyvalent 0.5 ML VIAL IM ONE (14:00)
[2017-12-23] MEDS: LORazepam TAB(*) 0.5 MG PO PRN (19:32)
[2017-12-24] MEDS: LORazepam TAB(*) 0.5 MG PO PRN (02:23)
[2017-12-24 07:33] VITALS: BP 129/86
--- NOTE | 2017-12-24 12:21 | DS ---
CC: Dr. Granda; with the patient upon her transfer to [facility] DISCHARGE SUMMARY: DATE OF ADMISSION: 12/20/17 DATE OF DISCHARGE: 12/24/17 PRIMARY CARE PROVIDER: Dr. Granda. DISCHARGE DIAGNOSES: 1. Dementia with behavioral disturbance. 2. Epistaxis. 3. Abdominal pain probably secondary to a large hiatal hernia. 4. Leukopenia. 5. Mild protein-calorie malnutrition. MEDICATION LIST: 1. Lorazepam 0.5 mg p.o. q.4 hours p.r.n. anxiety/agitation. 2. Morphine 10 mg p.o. q.4 hours p.r.n. pain. 3. Risperdal 0.25 mg p.o. at bedtime. HOSPITAL COURSE: Ms. Dumont is an 82-year-old lady with past medical history as stated above that pr esented to the emergency room on 12/19/17 brought in by her family with complaints of agitation, no b owel movement for 24 hours and family was not able to manage her at home. She was severely agitated in the emergency room and seen for evaluation for admission. As per HPI, her had been recent ly admitted to the hospital and the family was unable to care for her any more. She had severe agita tion in the ED requiring Haldol, Geodon, and Ativan and even required Precedex drip. Her workup in the emergency room included a CT of the brain that showed no acute intracranial process , only extensive periventricular subcortical white matter changes and opacification of the bilateral middle ear spaces and mastoid air cells. CT of the chest, abdomen and pelvis showed a large hiatal hernia containing the stomach, duodenal bul b, and distal half of the transverse colon and proximal descending colon, also cardiomegaly. There w ere dilated loops of small bowel in the central aspect of the abdomen with an air fluid level which c ould indicate a small bowel ileus or low grade small bowel obstruction. Incidental finding of cholel ithiasis and the large hiatal hernia as described above with organoaxial gastric volvulus, colonic di verticulosis, and exophytic lesions on the left kidney. The patient was seen in consultation by general surgery (Dr. Lacy) and his impression was that the patient was an elderly, frail lady with a large paraesophageal hernia that may or may not be causing her pain and he felt that the patient was not an operative candidate as she will not be able to come off the ventilator after having hiatal hernia surgery and given her extremely limited quality of life , he questioned if surgery would be in her best interest. The ICU attending discussed the case with her family and after reviewing the patient's case with the family, they felt that aggressive measures would not be indicated as she has no quality of life at [facility] due to her advanced dementia. A [facility] form was filled up to indicate that the patient is do no t resuscitate and the plan is for her to be discharged to [facility] with a hospice evaluation as outp atient. At this point, the patient has tolerated p.o. diet, but her intake is small. She still has not had a bowel movement, but does not appear to have abdominal pain, had no nausea or vomiting and as I descr ibed, her p.o. intake is minimal. On the day of discharge, she ate 25% of her breakfast. The day pr ior to discharge, she had 20% of her dinner, did not eat any lunch or breakfast. Her BMI is 20 and she has a prealbumin of 8. It is not clear how much weight she has lost, as she moreno s not had any medical care for many years and there is no family available at this time to provide th e information. If her p.o. intake continues to be poor, the patient will likely be eligible for hosp ice soon and I believe that is what is going to happen, because at this point, she has not really lake wn any significant interest in eating more. While in the hospital, the patient received Risperdal, Ativan, and Haldol multiple times to help cont rol her agitation. She also had one episode of epistaxis that resolved with just local pressure and her H and H has benson ined stable. She is medically stable at this time and she will be discharged to [facility] with plans for hospice e valuation as outpatient. PHYSICAL EXAMINATION: Vital Signs: Temperature 97.7, heart rate is 83, respiratory rate is 16, oxyg en saturation is 98% on room air, blood pressure is 129/86. General: The patient is an elderly lady lying in bed, in no acute distress, lethargic. CVS: Normal S1, S2. Regular rate and rhythm. Ches t: Breath sounds bilaterally with no added sounds. Abdomen: Soft, nontender. Bowel sounds were pre sent. Extremities: No edema. Neuro: She is mildly sedated. Smiles when I try to wake her up, but is nonverbal and does not follow commands. DIET: Regular diet, soft texture as tolerated for comfort. ACTIVITY: As tolerated. DISPOSITION: To [facility]. STATUS WHILE IN THE HOSPITAL: Inpatient. Please keep in mind this is a summarized version of this patient's hospital stay. If you need more in formation, please feel free to call me at [phone] or please obtain the full medical records. TIME SPENT: Approximately 45 minutes was spent to complete the discharge. [id number]/[facility] #: [id number]
[2017-12-24] MEDS: Morphine ORAL.SOLN 10 mg* 2 MG/ML UDC 5 ml PO PRN (12:31)
== END 2017-12-24 13:15 | DRG 884 ==
LOC: ED 17:10 → ICU 12-20 03:20 → MED 12-20 16:01
PROVIDERS: ADMIT Internal Medicine; ATTEND Internal Medicine
DX: F03.91 Unspecified dementia, unspecified severity, with behavioral disturbance (principal); E44.1 Mild protein-calorie malnutrition; R40.2142 Coma scale, eyes open, spontaneous, at arrival to emergency department; R40.2362 Coma scale, best motor response, obeys commands, at arrival to emergency department; R40.2252 Coma scale, best verbal response, oriented, at arrival to emergency department; R00.0 Tachycardia, unspecified; K44.9 Diaphragmatic hernia without obstruction or gangrene; E87.8 Other disorders of electrolyte and fluid balance, not elsewhere classified; E86.0 Dehydration; I95.9 Hypotension, unspecified; R54 Age-related physical debility; D72.819 Decreased white blood cell count, unspecified; K80.20 Calculus of gallbladder without cholecystitis without obstruction; K31.89 Other diseases of stomach and duodenum; K57.30 Diverticulosis of large intestine without perforation or abscess without bleeding; N28.9 Disorder of kidney and ureter, unspecified; Z66 Do not resuscitate; R04.0 Epistaxis; Z68.20 Body mass index [BMI] 20.0-20.9, adult; Z23 Encounter for immunization; Z90.710 Acquired absence of both cervix and uterus
CPT/HCPCS: 36415; 70450; 71045; 71250; 74176; 80053; 81003; 81015; 83605; 83690; 83880; 84134; 84484; 85014; 85018; 85025; 86140; 87040; 87086; 87641; 90686; 90732; 93005; 99285; A9270-GY; J1200; J1630; J1644; J2060; J2270; J2543; J3370; J3486